=== PATIENT | male | born 1985 | race Two or more races ===

== ENCOUNTER 2020-05-31 13:13 | Outpatient (CLI) | payer OTHER ==
[~2020-05-31] VITALS: Ht 177.8 cm; Wt 79.4 kg
[2020-05-31] MEDS ORDERED: FLONASE16 GM NASAL (13:59)
== END 2020-05-31 16:33 | disposition home or self-care (01) ==
LOC: OFIC 805 13:13
PROVIDERS: ATTEND Otolaryngology
DX: G47.33 Obstructive sleep apnea (adult) (pediatric) (principal); G50.1 Atypical facial pain; R09.81 Nasal congestion; J30.89 Other allergic rhinitis; J34.2 Deviated nasal septum

== ENCOUNTER → 2020-06-22 | Outpatient (CLI) | payer OTHER ==
[~2020-06-22] MED LIST: FLONASE16 GM NASAL
== END | disposition home or self-care (01) ==
LOC: OFIC 805 11:54
PROVIDERS: ATTEND Otolaryngology
DX: G47.33 Obstructive sleep apnea (adult) (pediatric) (principal); R09.81 Nasal congestion; G50.1 Atypical facial pain